=== PATIENT | female | born 1985 | race Caucasian/White ===

== ENCOUNTER 2019-08-06 06:45 | Inpatient (IN) | payer OTHER ==
[~2019-08-06] VITALS: Ht 160 cm; Wt 87.1 kg
[2019-08-06] MEDS ORDERED: PRENATAL CAPLE1 EAC1 PO (08:44)
[2019-08-08] MEDS ORDERED: SURFAK240 M1 PO ×2 (08:07→09:41)
[2019-08-08] MEDS ORDERED: PERCOCET 5-3251 EACH PO ×2 (08:07→09:41)
== END 2019-08-08 11:05 | DRG 785 ==
LOC: OB/GYN 06:45 → LDR 06:45 → OB/GYN 17:49
PROVIDERS: ADMIT Specialist
PROC: 0UB70ZZ Excision of Bilateral Fallopian Tubes, Open Approach (ICD-10-PCS; 2019-08-06)
PROC: 4A1HXCZ Monitoring of Products of Conception, Cardiac Rate, External Approach (ICD-10-PCS; 2019-08-06)
PROC: 4A033R1 Measurement of Arterial Saturation, Peripheral, Percutaneous Approach (ICD-10-PCS; 2019-08-06)
PROC: 3E033VJ Introduction of Other Hormone into Peripheral Vein, Percutaneous Approach (ICD-10-PCS; 2019-08-06)
PROC: 10D00Z1 Extraction of Products of Conception, Low, Open Approach (ICD-10-PCS; principal; 2019-08-06 16:00)
DX: O61.0 Failed medical induction of labor (principal); O76 Abnormality in fetal heart rate and rhythm complicating labor and delivery; Z3A.40 40 weeks gestation of pregnancy; Z37.0 Single live birth; Z30.2 Encounter for sterilization; Z22.330 Carrier of Group B streptococcus